=== PATIENT | female | born 1970 | race Caucasian/White ===

== ENCOUNTER 2020-06-22 12:05 | Outpatient (REF) | payer OTHER, SELFPAY ==
[2020-06-22 19:00] LABS: Abs Immature Grans 0.02 10^3/uL (0.0-0.06); Absolute Basophil Count 0.05 10^3/uL (0.0-0.2); Absolute Eosinophil Count 0.11 10^3/uL (0.0-0.7); Absolute Lymphocyte Count 2.55 10^3/uL (1.2-3.4); Absolute Monocyte Count 0.54 10^3/uL (0.1-0.8); Absolute Neutrophil Count 4.81 10^3/uL (1.2-6.7); Basophils % 0.6; Eosinophils % 1.4; HCT 42.5 % (36.0-46.0); Immature Grans % 0.2; Lymphocytes % 31.6; MCH 32.6 pg (27.0-33.0); MCHC 32.9 % (32.0-36.0); MCV 99.1 fL (80-95); MPV 9.8 fL (8.0-11.0); Monocytes % 6.7; Neutrophils % 59.5; Nucleated RBC 0 %; Platelet Count 276 10^3/uL (130-400); RBC 4.29 10^6/uL (3.93-5.22); RDW-SD 47.2 fL; WBC 8.08 10^3/uL (4.4-10.8)
[2020-06-22 19:17] LABS: Anion Gap 4.6 mmol/L (3-11); BUN 9 mg/dL (7-18); CO2 29.4 mmol/L (21.0-32.0); CREATININE 0.57 mg/dL (0.55-1.02); Calcium 9.6 mg/dL (8.5-10.1); Calculated LDL 195 mg/dL (<100); Chloride 106 mmol/L (98-107); Cholesterol 294 mg/dL (<200); Glucose 98 mg/dL (74-106); HDL Cholesterol 71 mg/dL (40-60); Potassium 5.2 mmol/L (3.5-5.1); Sodium 140 mmol/L (136-145); TSH (W/Ref FT4) 0.84 uIU/mL (0.36-3.74); Triglyceride 143 mg/dL (<150)
[2020-06-22 19:58] LABS: ESR 9 mm/hr (0-20)
== END 2020-06-22 12:25 ==
LOC: NCHCN 12:05
PROVIDERS: PCP Nurse Practitioner Family; Visit Provider Nurse Practitioner Family
DX: L40.9 Psoriasis, unspecified (principal); M25.50 Pain in unspecified joint
CPT/HCPCS: 80048; 80061; 85652; 84443; 85025

== ENCOUNTER 2021-08-19 13:52 | Outpatient (REF) | payer OTHER, SELFPAY ==
[2021-08-19 15:46] LABS: ALT 22 U/L (14-59); AST 11 U/L (15-37); Albumin 4.2 g/dL (3.4-5.0); Alkaline Phosphatase 82 U/L (46-116); Anion Gap 10.8 mmol/L (3-11); BUN 11 mg/dL (7-18); Bilirubin, Total 0.3 mg/dL (0.2-1.0); CO2 25.2 mmol/L (21.0-32.0); CREATININE 0.5 mg/dL (0.55-1.02); Calcium 9.4 mg/dL (8.5-10.1); Calculated LDL 183 mg/dL (<100); Chloride 105 mmol/L (98-107); Cholesterol 273 mg/dL (<200); Glucose 94 mg/dL (74-106); HDL Cholesterol 66 mg/dL (40-60); Potassium 4.3 mmol/L (3.5-5.1); Sodium 141 mmol/L (136-145); TSH (W/Ref FT4) 0.52 uIU/mL (0.36-3.74); Total Protein 6.7 g/dL (6.4-8.2); Triglyceride 122 mg/dL (<150)
== END 2021-08-19 13:53 | disposition home or self-care (01) ==
LOC: NCHCN 13:52
PROVIDERS: PCP Nurse Practitioner Family; Visit Provider Nurse Practitioner Family
DX: Z00.00 Encounter for general adult medical examination without abnormal findings (principal); R53.83 Other fatigue; Z51.81 Encounter for therapeutic drug level monitoring; Z13.220 Encounter for screening for lipoid disorders
CPT/HCPCS: 80053; 80061; 84443

== ENCOUNTER → 2021-11-18 02:11 | Outpatient (CLI) | payer BC, SELFPAY | PROVIDERS: PCP Nurse Practitioner Family; Visit Provider Nurse Practitioner Family ==